=== PATIENT | female | born 1975 | race Caucasian/White ===

== ENCOUNTER 2017-01-11 20:35 | Emergency (ER) | payer OTHER | END 2017-01-11 22:25 | disposition home or self-care (01) | LOC: ER 20:35 | DX: M25.511 Pain in right shoulder (principal); M54.2 Cervicalgia; W22.09XA Striking against other stationary object, initial encounter; Y92.009 Unspecified place in unspecified non-institutional (private) residence as the place of occurrence of the external cause; F17.210 Nicotine dependence, cigarettes, uncomplicated; Z79.899 Other long term (current) drug therapy; Z88.6 Allergy status to analgesic agent | CPT/HCPCS: 73030; 99070; 99283-25 ==

== ENCOUNTER 2017-02-13 19:09 | Emergency (ER) | payer OTHER | END 2017-02-13 22:12 | disposition home or self-care (01) | LOC: ER 19:09 | DX: M54.2 Cervicalgia (principal); M99.71 Connective tissue and disc stenosis of intervertebral foramina of cervical region; S13.4XXA Sprain of ligaments of cervical spine, initial encounter; M50.30 Other cervical disc degeneration, unspecified cervical region; E78.5 Hyperlipidemia, unspecified; F17.210 Nicotine dependence, cigarettes, uncomplicated; Z79.899 Other long term (current) drug therapy; Z88.6 Allergy status to analgesic agent; Z88.5 Allergy status to narcotic agent | CPT/HCPCS: 70490; 80307; 99070; 99283-25 ==